=== PATIENT | female | born 1990 | race Caucasian/White ===

== ENCOUNTER 2020-08-05 09:15 | Outpatient (CLI) | payer BC | END 2020-08-05 09:16 | disposition home or self-care (01) | LOC: DTY/OP 09:15 | PROVIDERS: ATTEND Nurse Practitioner Family | DX: E66.01 Morbid (severe) obesity due to excess calories (principal); Z68.41 Body mass index [BMI] 40.0-44.9, adult | CPT/HCPCS: 97802 ==

== ENCOUNTER 2021-05-23 10:41 | Outpatient (CLI) | payer BC | END 2021-05-23 10:42 | disposition home or self-care (01) | LOC: DTY/OP 10:41 | PROVIDERS: ATTEND Surgery | DX: E66.01 Morbid (severe) obesity due to excess calories (principal) | CPT/HCPCS: 97802 ==

== ENCOUNTER 2021-05-28 11:43 | Outpatient (CLI) | payer BC ==
[2021-05-28 12:34] LABS: #Basophils 0.1 10x3/uL (0.0-0.2); #Eosinphils 0.3 10x3/uL (0.0-0.5); #Monocytes 0.7 10x3/uL (0.0-1.1); #Neutrophils 5.8 10x3/uL (1.5-8.4); %Basophils 0.5 % (0.0-2.0); %Eosinophils 2.5 % (0.0-6.0); %Monocytes 6.5 % (0.0-10.0); %Neutrophils 53.3 % (40.0-75.0); Hemoglobin 14.4 g/dL (12.0-15.5); Mean Corpuscular HGB CONC 32.8 g/dL (32.0-36.0); Mean Corpuscular Hemoglobin 27.6 pg (27.0-33.0); Mean Corpuscular Volume 84.1 fl (81.6-98.3); Mean Platelet Volume 10.8 fl (7.4-10.4); Platelet Count 442 10x3/uL (150-450); RBC Distribution Width 14.8 % (11.5-14.5); Red Blood Cell (RBC) Count 5.22 10x6/uL (3.90-5.03); White Blood Cell (WBC) Count 10.9 10x3/uL (3.5-10.5)
[2021-05-28 12:43] LABS: BHCG - Serum Negative (NEGATIVE); Pregs Control Background? CLEAR/WHITE (CLR/WHITE); Pregs Control Bar Appear? YES (CONTROL BAR)
[2021-05-28 12:51] LABS: ALT (SGPT) 231 U/L (8-55); AST (SGOT) 104 U/L (5-34); Alkaline Phosphatase 41 U/L (40-110); Anion Gap 15 mmol/L (10-20); BUN (Urea Nitrogen) 10 mg/dL (7.0-18.7); Bilirubin, Total 0.2 mg/dL (0.2-1.2); Calc. Creatinine Clearance 0 mL/min (70-130); Calcium 9.4 mg/dL (7.8-10.44); Carbon Dioxide 23 mmol/L (22-29); Chloride 104 mmol/L (98-107); Glucose 96 mg/dL (70-105); Potassium 4.5 mmol/L (3.5-5.1); Sodium 137 mmol/L (136-145)
[2021-05-28 14:30] LABS: Hemoglobin A1c 5.3 % (4.0-6.0)
[2021-05-28 21:07] LABS: SARS-CoV-2 PCR by NAA Not Detected (NotDetected)
== END 2021-05-28 11:44 | disposition home or self-care (01) ==
LOC: LABBT 11:43
PROVIDERS: ATTEND Surgery
DX: Z01.818 Encounter for other preprocedural examination (principal); E66.01 Morbid (severe) obesity due to excess calories; Z20.822 Contact with and (suspected) exposure to COVID-19
CPT/HCPCS: 71046; 80053; 83036; 84703; 85025; 93005; 93010; U0003; U0005

== ENCOUNTER 2021-05-28 11:45 | Inpatient (IN) | payer OTHER ==
[2021-05-23 13:53] VITALS: BMI 57.0
[2021-06-02] MEDS ORDERED: Heparin 5,000 UNITS/ML VIAL ONE (06:08)
[2021-06-02] MEDS ORDERED: ceFAZolin 2 GM/Dextrose 50 ML IVPB ONE ×2 (06:08→07:25)
[2021-06-02] MEDS ORDERED: Midazolam HCl 2 mg/2 ml Vial ONE (07:09)
[2021-06-02] MEDS ORDERED: Fentanyl 100 MCG/2 ML VIAL ONE ×3 (07:11→09:20)
[2021-06-02] MEDS ORDERED: Bupivacaine 0.25% HCL 30 ML VIAL ONE (07:22)
[2021-06-02] MEDS ORDERED: Xylocaine 1% w/ Epi 1:100K 10 ML VIAL ONE ×2 (07:22)
[2021-06-02] MEDS ORDERED: Rocuronium Bromide 10 MG/ML (10ML VIAL) ONE (07:39)
[2021-06-02] MEDS ORDERED: Dexamethasone 20 MG/5 ML VIAL ONE (07:39)
[2021-06-02] MEDS ORDERED: Glycopyrrolate 0.2 MG/ML 5 ML SYRINGE ONE (07:39)
[2021-06-02] MEDS ORDERED: Lidocaine 1% PF 5 ML VIAL ONE (07:39)
[2021-06-02] MEDS ORDERED: Ondansetron PF 4 MG/2 ML Vial ONE ×2 (07:39→09:01)
[2021-06-02] MEDS ORDERED: PROPOFOL 200 MG/20 ML VIAL ONE (07:39)
[2021-06-02] MEDS ORDERED: SUGAMMADEX SODIUM 200 MG/2 ML VIAL ONE (08:43)
[2021-06-02] MEDS ORDERED: Hydrocodone-Acetamin 15 ML UDCUP PO PRN (08:45)
[2021-06-02] MEDS ORDERED: diphenhydrAMINE 50 MG/ML VIAL IVP PRN ×2 (08:45→08:59)
[2021-06-02] MEDS ORDERED: hydrALAZINE 20 MG/ML VIAL SLOW IVP PRN (08:45)
[2021-06-02] MEDS ORDERED: Promethazine HCl 25 MG/ML VIAL IM PRN ×3 (08:45→08:59)
[2021-06-02] MEDS ORDERED: Ondansetron PF 4 MG/2 ML Vial IVP PRN ×2 (08:45→08:59)
[2021-06-02] MEDS ORDERED: Dextrose 50% Abboject 50 ML SYRINGE SLOW IVP PRN (08:45)
[2021-06-02] MEDS ORDERED: Dextrose 5% in Water 1,000 ML IV PRN (08:45)
[2021-06-02] MEDS ORDERED: diphenhydrAMINE 50 MG/ML VIAL IM PRN (08:59)
[2021-06-02] MEDS ORDERED: HYDROmorphone 2 MG/ML VIAL SLOW IVP PRN (08:59)
[2021-06-02] MEDS ORDERED: Ondansetron HCl/PF 4 MG/2 ML Vial IVP PRN (08:59)
[2021-06-02] MEDS ORDERED: diphenhydrAMINE 25 MG CAP PO PRN (08:59)
[2021-06-02] MEDS ORDERED: Promethazine HCl 25 MG/ML VIAL IVPB PRN (08:59)
[2021-06-02] MEDS ORDERED: Naloxone HCl 0.4 mg/ml Vial IV PRN (08:59)
[2021-06-02] MEDS ORDERED: fentaNYL Citrate/PF 2,000 MCG in Sodium Chloride 0.9% 60 ML IV PRN (08:59)
[2021-06-02] MEDS ORDERED: Zolpidem Tartrate 5 MG TAB PO PRN (08:59)
[2021-06-02] MEDS ORDERED: Communication Order-Pharmacy FS SCH (09:00)
[2021-06-02] MEDS ORDERED: Promethazine HCl 25 MG/ML VIAL ONE (09:14)
[2021-06-02] MEDS ORDERED: D5 1/2 NS w/20 mEq KCL 1,000 ML ONE (10:34)
[2021-06-02] MEDS: Ketorolac Tromethamine 30 MG/ML VIAL IVP SCH ×3 (12:52→23:15)
[2021-06-02] MEDS: Enoxaparin Sodium 40 MG/0.4 ML SYRINGE SC SCH (12:53)
[2021-06-02] MEDS: Pantoprazole 40 MG VIAL IVP SCH (12:54)
[2021-06-02] MEDS: D5 1/2 NS w/20 mEq KCL 1,000 ML IV SCH ×4 (12:54→20:48)
[2021-06-02] MEDS ORDERED: ceFAZolin 2 GM/Dextrose 50 ML 2 GM in Premix Bag 1 BAG IVPB SCH (14:00)
[2021-06-02] MEDS: ceFAZolin 2 GM/Dextrose 50 ML 2 GM in Premix Bag 1 BAG IVPB SCH ×2 (17:35→23:12)
[2021-06-03] MEDS: Ketorolac Tromethamine 30 MG/ML VIAL IVP SCH (05:42)
[2021-06-03] MEDS ORDERED: Hydrocodone-Acetamin 15 ML UDCUP PO PRN (05:44)
[2021-06-03 06:43] LABS: #Lymphocytes 3.9 thou/uL (1.20-3.40); #Monocytes 1.5 thou/uL (0.11-0.59); #Neutrophils 9.9 thou/uL (1.40-6.50); %Basophils 0.2 % (0.0-1.0); %Eosinophils 0.2 % (0.0-10.0); %Lymphocytes 25.6 % (21.0-51.0); %Monocytes 9.6 % (0.0-10.0); %Neutrophils 64.4 % (42.0-75.0); Hemoglobin 12.6 g/dL (12.0-16.0); Mean Corpuscular Hemoglobin 28.7 pg (27.0-31.0); Mean Platelet Volume 9.5 fL (7.4-10.4); Platelet Count 325 thou/uL (130-400); RBC Distribution Width 13.5 % (11.5-14.5); White Blood Cell (WBC) Count 15.3 thou/uL (4.8-10.8)
[2021-06-03 07:03] LABS: Anion Gap 14 mmol/L (10-20); BUN (Urea Nitrogen) 5 mg/dL (7.0-18.7); Calc. Creatinine Clearance 303 mL/min (70-130); Calcium 8.3 mg/dL (7.8-10.44); Carbon Dioxide 21 mmol/L (22-29); Chloride 103 mmol/L (98-107); Glucose 108 mg/dL (70-105); Potassium 3.9 mmol/L (3.5-5.1); Sodium 134 mmol/L (136-145)
[2021-06-03] MEDS: Enoxaparin Sodium 40 MG/0.4 ML SYRINGE SC SCH (08:06)
[2021-06-03] MEDS: Pantoprazole 40 MG VIAL IVP SCH (08:06)
[2021-06-03 08:09] VITALS: BP 116/79; TEMP 97.9
== END 2021-06-03 10:10 | disposition home or self-care (01) | DRG 621 ==
LOC: PREINTOOBSV 06-02 03:18 → SURG A 06-02 05:35 → EDSTATUS 06-02 11:45
PROVIDERS: ADMIT Surgery; ATTEND Surgery
PROC: 0DB64Z3 Excision of Stomach, Percutaneous Endoscopic Approach, Vertical (ICD-10-PCS; principal; 2021-06-02)
DX: E66.01 Morbid (severe) obesity due to excess calories (principal); Z20.822 Contact with and (suspected) exposure to COVID-19; E28.2 Polycystic ovarian syndrome; F17.210 Nicotine dependence, cigarettes, uncomplicated; F10.20 Alcohol dependence, uncomplicated; F41.9 Anxiety disorder, unspecified; F32.A Depression, unspecified; G43.909 Migraine, unspecified, not intractable, without status migrainosus; D64.9 Anemia, unspecified; Z68.43 Body mass index [BMI] 50.0-59.9, adult; Z79.899 Other long term (current) drug therapy
CPT/HCPCS: 36415; 80048; 85025; 88307; 94760; A4649; C9113; J0690; J1100; J1644; J1650; J1885; J2250; J2405; J2550; J2704; J3010; J3480; S0020